=== PATIENT | male | born 1995 | race African-American/Black ===

== ENCOUNTER 2016-08-31 17:27 | Emergency (ER) | payer OTHER ==
[2016-08-31] MEDS ORDERED: TRAMADOL 50 MG TAB ONE (18:49)
[2016-08-31] MEDS ORDERED: LIDOCAINE 2% VISC 15 ML UDC ONE (18:49)
[2016-08-31] MEDS ORDERED: Ibuprofen 200 MG TAB ONE (18:49)
[2016-08-31] MEDS ORDERED: Ibuprofen 400 MG TAB ONE (18:50)
== END 2016-08-31 18:56 | disposition home or self-care (01) ==
LOC: ER 17:27